=== PATIENT | female | born 1945 | race Caucasian/White ===

== ENCOUNTER 2019-05-30 09:38 | Outpatient (CLI) | payer MEDICARE ==
[~2019-05-30] VITALS: Ht 154 cm; Wt 68.0 kg
[~2019-05-30 09:38] MED LIST: CLON2TAB3 PO; FLUT1DIS3 IH; HYDR-3714 PO; MELA1LIQ PO; Oxycodone Hcl/Acetaminophen PO
[2019-05-30] MEDS ORDERED: OMEP40CA27 PO (10:57)
[2019-05-30] MEDS ORDERED: HYDR-3812 PO (10:57)
[2019-05-30] MEDS ORDERED: FLUT1DIS26 IH (10:57)
[2019-05-30] MEDS ORDERED: MELA10TA2 PO (10:57)
[2019-06-02] MEDS ORDERED: HYDR-3816 PO (08:36)
== END 2019-05-30 12:06 | disposition home or self-care (01) ==
LOC: PREOP 09:38
PROVIDERS: ATTEND Surgery
DX: Z01.818 Encounter for other preprocedural examination (principal)